=== PATIENT | female | born 1995 | race African-American/Black ===

== ENCOUNTER 2019-02-10 20:01 | Day surgery (SDC) | payer OTHER ==
[2019-02-10 20:27] VITALS: BMI 57.4
[2019-02-10 20:46] VITALS: BP 108/61
--- NOTE | 2019-02-10 20:53 | PDOC.FPROB ---
FMR OB H&P: HPI - History of Present Illness Chief Complaint: contractions Indentification: @ unknown gestational age presenting with a CC of contractions. History of Present Illness: 23YO @ an uncertain gestational age with a reported LMP of 06/17/18 (34 weeks by LMP) who presented to L&D via ambulance with a CC of contractions that began ~ 1 hour ago. Per the patient she was napping with one of her daughters and woke up to go to the bathroom. After she voiding she began to have intermittent lower abdominal pains that she felt were contractions. She tried taking a warm shower to see if the pain would stop but it persisted. She reports the pain as episodic lasting a few minutes with 5 minutes between each painful episode. She reports some associated nausea but denies any vaginal bleeding, d/c, or LOF. She reports regular movement and denies any dysuria or fever/chills as well. The patient reports having incomplete PNC. She states she did not get insurance until she was about 6 months and has been back and forth between [facility] and [place]. She says she has seen an dairy lab technician in [place] only 3 times and cannot remember their name. Primary Care Physician: Unknown physician in [place], [place] FMR OB H&P: Current - Care : 5 Para: [id number] Gestational age: uncertain Due date: uncertain Dating Criteria: uncertain Course/Complications: none - OB Labs Blood type: unknown RH: unknown Antibody Screen: unknown HIV: unknown RPR: unknown HepBsAg: unknown Gonorrhea: unknown Chlamydia: unknown GBS: unknown FMR OB H&P: History - Past Medical History PMH: Asthma, obesity, bipolar disorder - OB History OB History: Pregnancies: 1. Term 2. Term 3. Term LTCS 2/2 arrest of dilation; in NICU for fever/sepsis 4. 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 - Surgical History Sx History: C/S x2 - Social History Social History: No TAD. - Family History Family History: Mother- HTN FMR OB H&P: Medications - Current Home Medications: Medication Instructions Recorded Confirmed Type Ferrous Fumarate [Ferrocite] 324 mg PO DAILY #90 tablet 02/10/19 Rx Vitamin 1 tablet PO DAILY #90 tab 02/10/19 Rx Allergies/Adverse Reactions: Allergies Allergy/AdvReac Type Severity Reaction Status Date / Time No Known Allergies Allergy Unverified 02/10/19 20:25 FMR OB H&P: ROS - Review of Systems General: denies: fever/chills, weight/appetite/sleep changes Eyes: denies: vision changes, scotomas ENT: reports: rhinorrhea. denies: nasal congestion, sore throat Cardiovascular: denies: chest pain, palpitation Respiratory: denies: cough, congestion, shortness of breath Gastrointestinal: reports: abdominal pain, nausea. denies: vomiting, diarrhea, constipation Genitourinary (Female): reports: contractions. denies: dysuria, hematuria, vaginal discharge, vaginal pain, vaginal bleeding Musculoskeletal: reports: swelling. denies: pain Neurologic: denies: syncope, loss of counsciousness, headache Integumentary: denies: rash, lesions Breast: denies: skin changes, pain/tenderness Endocrine: denies: polydipsia, polyuria Hematologic/Lymphatic: denies: prolonged or excessive bleeding Psychological: reports: other (bipolar). denies: depression, anxiety FMR OB H&P: Vital Signs - Maternal Vital signs: Vital Signs - First Documented Pulse Resp BP Pulse Ox 91 18 108/61 100 02/10/19 20:22 02/10/19 20:22 02/10/19 20:22 02/10/19 20:22 - Heart Tones Baseline: 150 Variability: moderate Acceleration: present Deceleration: absent [place] contractions every: no significant contractions noted FMR OB H&P: Physical Exam - Physical Exam General: NAD, awake, alert and oriented HEENT: normocephalic and atraumatic, MMM, conjunctiva clear, grossly normal vision, grossly normal hearing Neck: supple, FROM Heart: RRR, normal S1/S2, pulses present, no edema General: CTAB, no respiratory distress, good air movement, no rales/rhonchi, no wheezing, no retractions Abdomen: soft, gravid, non-tender Musculoskeletal: normal gait and station, pulses present, FROM in all four extremities Neurological: cranial nerves II through XII intact, sensation to pain,touch and proprioception grossly normal, no focal deficit Skin: no rash, good tugor, capillary refill <2 seconds, no jaundice Lymphatic: no unusual bruising or bleeding, no purpura, no petechia Psychiatric: intact recent and remote memory, good judgement and insight, normal mood and affect - Pelvic Exam Vulva: normal hair distribution, appropriate charis stage Deviation from normal: scant amount of bloody show on glove s/p cervical check SVE: fingertip/Th/High FMR OB H&P: A/P - Problem List (1) Status: Acute Qualifiers: Weeks of gestation: 29 weeks Qualified Code(s): Z3A.29 - 29 weeks gestation of (2) Asthma Status: Acute Code(s): J45.909 - UNSPECIFIED ASTHMA, UNCOMPLICATED Disposition: 23YO @ an unknown gestational age with incomplete PNC presenting to L&D with a CC of contractions. Reported contraction, r/o labor: - Unable to obtain a FFN swab as patient last had intercourse this AM. SVE @ 2100 closed/Th/High. No contractions picked up on monitor since arrival. FHT reassuring with baseline in 150s and moderate variability noted. - Will obtain an OB US to better establish dating & will get basic OB bloodwork including a blood type & screen, Hemagram, HIV, RPR, Hep B, & urine drug screen & culture due to inadequate PNC. - Will continue to monitor for contractions. h/o arrest of dilation: - Aware, resulted in first C/S h/o C/S x2: - Aware, patient desires repeat C/S this Obesity: - Aware, will encourage lifestyle changes. Asthma: - Only uses a rescue inhaler PRN. Dispo: Anticipate likely d/c home pending US to establish dates. Discussion: Date/Time: 02/10/192047 This H&P was discussed with Dr. Henry who agrees with the above documentation and plan. Addendum - Attending - Attending Attestation Date/Time: 02/13/19 [id number] I personally evaluated the patient and discussed the management with Dr. Vivas. I agree with the History, Examination, Assessment and Plan documented above with any addition or exceptions noted below. Pt presented with ctx and very limited care with none for many months. Pt has no evidence of labor. vitals reviewed and wnl. drug screen positive for cocaine. PT denies cocaine use. Routine initial OB labs drawn today. anatomy scan measures baby at 29wks with normal fluid. PT being discharged home with f/u scheduled with Dr Vivas next week.
[2019-02-10] MEDS ORDERED: FLU VACC QS2019-20(6MOS UP)/PF 60 MCG/0.5 ML SYRINGE IM ONE (21:00)
[2019-02-10 21:32] LABS: Hemoglobin 10.7 g/dL (12.0-16.0); Mean Corpuscular Hemoglobin 33.5 pg (27.0-31.0); Mean Corpuscular Volume 95.7 fL (78.0-98.0); Mean Platelet Volume 9.2 fL (7.4-10.4); Platelet Count 195 thou/uL (130-400); RBC Distribution Width 11.9 % (11.5-14.5); White Blood Cell (WBC) Count 5.5 thou/uL (4.8-10.8)
--- NOTE | 2019-02-10 22:00 | PDOC.OBTPN ---
R OB Triage PN:Sub - Interval History Chief Complaint: contractions Indentification: @ 29 weeks by sono done today Interval History: Initial OB labs obtained & US showed EGA of 29 weeks FMR OB Triage PN:Obj - Maternal Vital signs: WNLs - Heart Tones Baseline: 150 Variability: moderate [place] contractions every: no contractions noted - Pain Management Pain scale: 0 R OB Triage PN:Exam - Physical Exam General: NAD, awake, alert and oriented HEENT: normocephalic and atraumatic, grossly normal vision, grossly normal hearing Neck: supple, FROM General: no respiratory distress Abdomen: gravid Musculoskeletal: FROM in all four extremities Skin: no rash, good tugor Lymphatic: no unusual bruising or bleeding, no purpura, no petechia Psychiatric: intact recent and remote memory, good judgement and insight, normal mood and affect FMR OB Triage PN:Data - Labs Lab results: Laboratory Results - last 24 hr 02/10/19 02/10/19 02/10/19 21:19 21:19 21:36 WBC 5.5 RBC 3.20 L Hgb 10.7 L Hct 30.6 L MCV 95.7 MCH 33.5 H MCHC 35.0 RDW 11.9 Plt Count 195 MPV 9.2 Blood Type B NEGATIVE B NEGATIVE Antibody Screen NEGATIVE - Imaging Imaging: OB US: sIUP @ ~29 weeks gestation. Vertex. Anterior placenta. MICHAEL 15.3. FHTs of 145. EFW 1251g +/- 185g (24th percentile). R OB Triage PN:A/P - Problem List (1) Current Visit: Yes Status: Acute Qualifiers: Weeks of gestation: 29 weeks Qualified Code(s): Z3A.29 - 29 weeks gestation of (2) Asthma Current Visit: Yes Status: Acute Code(s): J45.909 - UNSPECIFIED ASTHMA, UNCOMPLICATED (3) History of delivery, currently Current Visit: Yes Status: Acute Code(s): O34.219 - MATERNAL CARE FOR UNSP TYPE SCAR FROM PREVIOUS DEL Disposition: 23YO @ 29 weeks by sono done today who presented to L&D with a CC of contractions. Reported contractions, r/o labor: - Still no contractions picked up on monitor since arrival. - FHT reassuring with baseline in 150s and moderate variability noted. - SVE: closed/Th/High @ 2100. - OB US showed an EGA of 29 weeks. - No signs of imminent labor or ROM. sIUP @ 29 weeks w/ inadequate PNC: - Dating confirmed via US done today. - IOB labs obtained which show blood type b negative & Ab negative & RPR -; UA WNLs; HIV, Hep B & UDS pending. - Flu & Tdap given today. - Will refer to [facility] for continued PNC since patient plans to remain in [place] for remainder of . - Continue PNVs. Anemia of : - Hgb 10.7 on initial bloodwork. Will start on PO iron in addition to PNVs. Rh negative: - B negative blood type noted on IOB labs. Will give Rhogam today & will need a second dose within 72 hours of delivery if fetus is Rh +. Cocaine use in : - UDS + for cocaine. Patient denies ever having used it. Possibly the source of her contractions she felt earlier this evening. Counselled on cessation & risks associated with cocaine use in including SGA/low weight, abruption, & pre-term delivery. h/o arrest of dilation: - Aware, resulted in first C/S. h/o C/S x2: - Aware, patient desires repeat C/S this . Obesity: - Aware, will encourage lifestyle changes. Asthma: - Only uses a rescue inhaler PRN. Dispo: Will d/c home with instructions to f/u at [facility] for continued care. Discussion: Date/Time: 02/10/192157 This H&P was discussed with Dr. Henry who agrees with the above documentation and plan.
[2019-02-10 22:05] LABS: Syphilis Antibody Nonreactive (Nonreactive); Syphilis Antibody Index 0.04 S/CO (<1.00 Non-Reactive)
--- NOTE | 2019-02-10 22:34 | ULT ---
EXAM: Obstetrical ultrasound greater than 14 weeks: HISTORY: Incomplete care. Establish gestational age. COMPARISON: None. FINDINGS: Single viable intrauterine fetus is noted in Cephalic presentation. heart rate equals 145 bpm. Placenta is anterior. Cervical length is not adequately seen.. Amniotic fluid is Within normal limits. anatomy: Visualized brain, 4 chamber heart, chest, three-vessel cord, cord insert, stomach, bladder, kid neys, spine, and extremity regions are unremarkable. biometry: BPD: 7.4 cm--29 weeks 3 days Head circumference: 27.3 cm--29 weeks 6 days Abdominal circumference: 23.8 cm--28 weeks 1 day Femur length:5.4 cm--28 weeks 5 days IMPRESSION: Gestational age by ultrasound: 29 weeks 0 days LENNY by ultrasound: 04/28/2019 Estimated weight: 1251 g
[2019-02-10 22:43] LABS: Bacteria/HPF None Seen HPF (None Seen); Bilirubin Negative (Negative); Blood, Urine Negative (Negative); Clarity Clear (Clear); Glucose, Urine (Dipstick) Normal (Negative); Leukocyte 25 Leu/uL (Negative); Nitrite Negative (Negative); Protein, Urine (Dipstick) 20 mg/dL (Neg-Trace); RBC/HPF 0-3 HPF (0-3); Squamous Epithelial 0-3 HPF (0-3); WBC/HPF 0-3 HPF (0-3)
[2019-02-10] MEDS ORDERED: Boostrix 0.5 ML VIAL IM ONE (22:49)
[2019-02-10 22:52] LABS: Amphetamine Not Detected (NotDetected); Barbiturates Screen Not Detected (NotDetected); Benzodiazepine Screen Not Detected (NotDetected); Cocaine Metabolite Screen Detected (NotDetected); Medtox Control Line Valid? VALID (VALID); Medtox Reader # READER 4; Methadone Not Detected (NotDetected); Methamphetamine Not Detected (NotDetected); Opiate Screen Not Detected (NotDetected); Oxycodone Screen Not Detected (NotDetected); Phencyclidine (PCP) Not Detected (NotDetected); THC/Cannabinoid Screen Not Detected (NotDetected); Tricyclic Screen Not Detected (NotDetected)
[2019-02-10] MEDS ORDERED: Adacel (T-DAP) 0.5 ML SYRINGE IM ONE (23:00)
[2019-02-10 23:58] LABS: HIV (1/2) Antibody/Antigen Non-Reactive (NonReactive); HIV 1/2 INDEX 0.13 S/CO (<1.00); Hep B Surf Ag Non-Reactive S/CO (NonReactive)
== END 2019-02-10 23:32 | disposition home or self-care (01) ==
LOC: L&D/OP 20:01
PROVIDERS: ATTEND Obstetrics & Gynecology
DX: O47.03 False labor before 37 completed weeks of gestation, third trimester (principal); O99.213 Obesity complicating pregnancy, third trimester; E66.9 Obesity, unspecified; O99.513 Diseases of the respiratory system complicating pregnancy, third trimester; J45.909 Unspecified asthma, uncomplicated; O34.211 Maternal care for low transverse scar from previous cesarean delivery; Z3A.34 34 weeks gestation of pregnancy; Z79.899 Other long term (current) drug therapy
CPT/HCPCS: 36415; 76815; 80306; 81001; 85027; 86762; 86780; 86850; 86900; 86901; 87081; 87086; 87340; 87389; 90384; 90715; 96372

== ENCOUNTER 2019-04-27 19:36 | Inpatient (IN) | payer OTHER ==
[2019-04-27] MEDS ORDERED: hydrALAZINE 20 MG/ML VIAL SLOW IVP PRN ×2 (19:38→21:01)
[2019-04-27 20:11] VITALS: BMI 58.1
[2019-04-27 20:41] LABS: Bacteria/HPF None Seen HPF (None Seen); Bilirubin Negative (Negative); Blood, Urine Trace (Negative); Clarity Clear (Clear); Glucose, Urine (Dipstick) Normal (Negative); Leukocyte Negative Leu/uL (Negative); Nitrite Negative (Negative); Protein, Urine (Dipstick) 30 mg/dL (Neg-Trace); WBC/HPF 0-3 HPF (0-3)
[2019-04-27 20:43] LABS: Urine Culture Reflex No No
[2019-04-27 20:59] LABS: Amphetamine Not Detected (NotDetected); Barbiturates Screen Not Detected (NotDetected); Benzodiazepine Screen Not Detected (NotDetected); Cocaine Metabolite Screen Detected (NotDetected); Medtox Reader # READER 4; Methadone Not Detected (NotDetected); Methamphetamine Not Detected (NotDetected); Opiate Screen Not Detected (NotDetected); Oxycodone Screen Not Detected (NotDetected); Phencyclidine (PCP) Not Detected (NotDetected); THC/Cannabinoid Screen Detected (NotDetected); Tricyclic Screen Not Detected (NotDetected)
[2019-04-27 21:00] LABS: Medtox Control Line Valid? VALID (VALID)
[2019-04-27] MEDS ORDERED: Promethazine HCl 25 MG/ML VIAL IM PRN (21:01)
[2019-04-27] MEDS ORDERED: Acetaminophen 500 MG TAB PO PRN (21:01)
[2019-04-27] MEDS ORDERED: Ondansetron PF 4 MG/2 ML Vial IVP PRN (21:01)
[2019-04-27 21:08] LABS: Creatinine, Urine 251.2 mg/dL (47-110)
--- NOTE | 2019-04-27 21:10 | PDOC.LDHP ---
Labor and Delivery H&P Chief complaint: other (pelvic pressure) HPI: 23 y/o at 39w6d by 27 week ultrasound presents with pelvic pressure and burning with urination. Denies sharp pain, VB, LOF, or decreased FM. Was seen once in triage but no care otherwise. Was previously + for cocaine. ROS neg for HEENT, cv, pulm, gi, gu, neuro, psych, skin, musculoskeletal or constitutional symptoms other than mentioned above. OB History Details: Term Term Term LTCS for arrest of dilation; to NICU for sepsis Term rLTCS Current complications: other (no care) Past Medical History: Asthma Obesity Bipolar Current medications: pre- vitamins, iron Previous surgical history: low tranverse CS (x2) Allergies/Adverse Reactions: Allergies Allergy/AdvReac Type Severity Reaction Status Date / Time No Known Allergies Allergy Unverified 02/10/19 20:25 Social history: drug use - Physical Exam Vital signs reviewed and normal: yes (mild range BPs) General: NAD, resting Lungs: nonlabored breathing Abdomen: gravid Extremeties: no edema FHT: category 1 (150s, mod variability, + accels, no decels) [place] contractions every: occasional - OB Labs Blood type: B RH: negative - Assessment Term patient with poor compliance, + UDS for cocaine/marijuana, EDC tomorrow with prior x 2. BPs elevated, labs pending. - Plan Plan: admit to L&D, to OR for section (tomorrow), informed consent obtained, anesthesia consult for pain management
[2019-04-27 21:13] LABS: #Eosinphils 0.2 thou/uL (0.0-0.7); #Lymphocytes 1.9 thou/uL (1.20-3.40); #Monocytes 0.6 thou/uL (0.11-0.59); #Neutrophils 4.6 thou/uL (1.40-6.50); %Basophils 0.3 % (0.0-1.0); %Eosinophils 2.2 % (0.0-10.0); %Lymphocytes 26.4 % (21.0-51.0); %Monocytes 8.2 % (0.0-10.0); Hemoglobin 10.7 g/dL (12.0-16.0); Mean Corpuscular HGB CONC 36.3 g/dL (32.0-36.0); Mean Corpuscular Hemoglobin 33.5 pg (27.0-31.0); Mean Corpuscular Volume 92.3 fL (78.0-98.0); Mean Platelet Volume 9.3 fL (7.4-10.4); Platelet Count 223 thou/uL (130-400); RBC Distribution Width 12.4 % (11.5-14.5); White Blood Cell (WBC) Count 7.3 thou/uL (4.8-10.8)
[2019-04-27] MEDS ORDERED: Lactated Ringer's 1,000 ML IV SCH (21:15)
[2019-04-27 21:32] LABS: ALT (SGPT) 8 U/L (8-55); AST (SGOT) 7 U/L (5-34); Albumin 3.2 g/dL (3.5-5.0); Alkaline Phosphatase 238 U/L (40-110); Anion Gap 13 mmol/L (10-20); BUN (Urea Nitrogen) 10 mg/dL (7.0-18.7); Bilirubin, Total 0.4 mg/dL (0.2-1.2); Calc. Creatinine Clearance 277 mL/min (70-130); Calcium 9.1 mg/dL (7.8-10.44); Carbon Dioxide 20 mmol/L (22-29); Chloride 105 mmol/L (98-107); Estimated GFR-MDRD Greater than 90; Glucose 88 mg/dL (70-105); Potassium 3.7 mmol/L (3.5-5.1); Protein, Total 7.2 g/dL (6.0-8.3); Sodium 134 mmol/L (136-145)
--- NOTE | 2019-04-27 22:35 | PDOC.BPN ---
- Brief Progress Note Pr:Cr ratio 0.07, no e/o preeclampsia at this time. Elevated BPs possibly due to +cocaine. Will continue to monitor overnight.
--- NOTE | 2019-04-27 23:31 | ULT ---
OB ULTRASOUND 04/27/19 HISTORY: Evaluate for growth. COMPARISON: 02/10/19. FINDINGS: Again noted is evidence of a single intrauterine gestation in cephalic presentation. Cardiac Doppler demonstrates heart tones with a heart rate of 157 beats per minute. The placenta is locat ed anteriorly and to the maternal right. The head obscures the lower uterine segment. The amnio tic fluid index measures 13.4 cm which is within normal limits. The cervix is obscured due to shadowi ng from the head. MEASUREMENTS: Biparietal diameter 9.09 cm 36 weeks, 6 days Head circumference 34.06 cm 39 weeks, 1 day Abdominal circumference 33.75 cm 37 weeks, 5 days Femur length 7.33 cm 37 weeks, 4 days The estimated gestational age by ultrasound is 37 weeks and 6 days with an LENNY on 05/12/2019. Gestatio nal age by the last menstrual period is 39 weeks and 6 days. The estimated weight by ultrasound is 3283 grams (7 lb. 4 oz.). There has been interval growth compared to the prior exam. This examination was not performed for evaluation of the anatomical structures. However, no def initive anomalies are seen based on the provided sonographic images. IMPRESSION: 1. Single intrauterine gestation in cephalic presentation with heart tones documented. Ges tational age by ultrasound is 37 weeks, 6 days with an LENNY on 05/12/2019. This does represent a discre pancy in the gestational age by the last menstrual period of 39 weeks, 6 days. 2. Estimated weight is 3283 grams (7 lb. 4 oz.). This represents the 25th percentile for f etal weight. 3. Amniotic fluid index measures 13.4 cm. POS: [facility]
[2019-04-28 00:06] LABS: HBSAg Index 0.13 S/CO (0-0.99); Hep B Surf Ag Non-Reactive S/CO (NonReactive); Syphilis Antibody Nonreactive (Nonreactive); Syphilis Antibody Index 0.04 S/CO (<1.00 Non-Reactive)
[2019-04-28 00:25] LABS: HIV (1/2) Antibody/Antigen Non-Reactive (NonReactive)
[2019-04-28 00:28] LABS: HIV 1/2 INDEX 0.06 S/CO (<1.00)
[2019-04-28] MEDS ORDERED: Ondansetron PF 4 MG/2 ML Vial ONE (10:02)
[2019-04-28] MEDS ORDERED: Fentanyl 100 MCG/2 ML VIAL ONE (10:02)
[2019-04-28] MEDS ORDERED: MORPHINE 5 MG/10 ML PF VIAL ONE (10:02)
[2019-04-28] MEDS ORDERED: Oxytocin 10 UNITS/ML VIAL ONE (10:02)
[2019-04-28] MEDS ORDERED: Metoclopramide HCl 10 MG/2 ML VIAL ONE (10:02)
[2019-04-28] MEDS ORDERED: Azithromycin 500 MG in Sodium Chloride 0.9% 250 ML 250 ML IVPB SCH (11:15)
[2019-04-28] MEDS ORDERED: CEFAZOLIN 2 GM in Premix Bag 1 BAG IVPB SCH (11:15)
[2019-04-28] MEDS ORDERED: Ondansetron HCl/PF 4 MG/2 ML Vial IVP PRN (12:44)
[2019-04-28] MEDS ORDERED: Naloxone HCl 0.4 mg/ml Vial IVP PRN ×2 (12:44)
[2019-04-28] MEDS ORDERED: Naloxone HCl 0.4 mg/ml Vial IV PRN (12:44)
[2019-04-28] MEDS ORDERED: L&D-Morphine 4 MG/ML VIAL SLOW IVP PRN (12:44)
[2019-04-28] MEDS ORDERED: Ondansetron PF 4 MG/2 ML Vial IVP PRN ×2 (12:44→15:26)
[2019-04-28] MEDS ORDERED: Promethazine HCl 25 MG/ML VIAL IM PRN (12:44)
[2019-04-28] MEDS ORDERED: Meperidine HCl/PF 25 MG/ML VIAL SLOW IVP PRN (12:44)
[2019-04-28] MEDS ORDERED: Promethazine HCl 25 MG SUPP PR PRN (12:44)
[2019-04-28] MEDS ORDERED: HYDROmorphone 2 MG/ML VIAL SLOW IVP PRN (12:44)
[2019-04-28] MEDS ORDERED: Ketorolac Tromethamine 30 MG/ML VIAL IVP SCH (12:45)
[2019-04-28] MEDS ORDERED: Communication Order-Pharmacy FS SCH (12:45)
[2019-04-28 12:47] LABS: Analyzer IN Cardio OR
[2019-04-28 12:48] LABS: Actual Bicarbonate (HCO3v) 20 mEq/L (22-28); Base Excess -11.4 mEq/L (-2.0 to +3.0); pH (Cord, venous) 7.07 (7.32-7.43)
[2019-04-28 12:49] LABS: Actual Bicarbonate (HCO3a) 22.4 mEq/L (22-28); Analyzer IN Cardio OR; Base Excess (BEa) -9.8 mEq/L (-2.0 to +3.0)
[2019-04-28] MEDS ORDERED: diphenhydrAMINE 50 MG/ML VIAL ONE (13:34)
[2019-04-28] MEDS: diphenhydrAMINE 50 MG/ML VIAL IVP PRN ×2 (13:35→17:54)
[2019-04-28] MEDS ORDERED: NS / Oxytocin 40 units/1000ml 1,000 ML IV SCH (14:00)
--- NOTE | 2019-04-28 15:20 | OP ---
DATE OF PROCEDURE: 04/28/2019 PREOPERATIVE DIAGNOSES: 1. A 40-week intrauterine . 2. Labile blood pressures. 3. Two previous sections. 4. Maternal obesity. POSTOPERATIVE DIAGNOSES: 1. A 40-week intrauterine . 2. Labile blood pressures. 3. Two previous sections. 4. Maternal obesity. PROCEDURE PERFORMED: Repeat low-segment transverse section via Pfannenstiel incision. SURGEON: Jason Dc MD SENIOR VISUAL DESIGNER SURGEONS: 1. Jessica Peters MD. 2. Renee Nichols MD. FINDINGS: 1. Viable female , weight 7 pounds 3 ounces, found in the cephalic presentation with Apgars of 1 and 9. 2. Meconium-stained fluid. 3. Normal uterus, tubes, and ovaries bilaterally. 4. Arterial cord pH of 7.05. ANESTHESIA: Spinal. ESTIMATED BLOOD LOSS: 600 mL. QBL pending. COMPLICATIONS: None. PROPHYLAXIS: Ancef 2 g IV prior to incision. TECHNIQUE IN DETAIL: After good spinal anesthesia was achieved, the patient was prepped and draped in the usual sterile fashion in the supine position with leftward tilt. Tape was used to elevate the maternal pannus. A transverse incision was made through a pre-existing surgical scar and the abdomen was entered in layers. Once the peritoneal cavity had been entered, it could be seen that there was a white band of adhesions on the left lateral side of the uterus. This was avoided and a transverse incision was made across the lower uterine segment. Upon entry into the uterine cavity, meconium-stained fluid could be seen. The fetus was delivered from the cephalic presentation. The nasopharynx was bulb suctioned and then the remainder of the baby was then delivered. Cord was clamped and cut, and the baby was taken to the warmer, where the nursery personnel were in attendance. The cord blood and cord gas were then obtained. The placenta was manually removed. The inside of the uterus was curetted with a dry lap to remove all remaining placental fragments. The uterus was exteriorized and the closure of the uterine incision was begun using a running locking suture of Monocryl. Good hemostasis was noted with single- layer closure. The uterus was then replaced in the abdominal cavity and the pelvic gutters were cleared of all clots and debris. The uterine incision was again reviewed and was noted to be hemostatic. Attention was turned to the anterior abdominal wall. The fascia was closed using an alternating running locking suture of PDS, brought laterally to the midline. The subcutaneous tissue was thoroughly irrigated and made dry using Bovie coagulation technique. Plain gut was then used to approximate the subcutaneous tissue. The skin was closed with metal rob. Sponge, lap, and needle counts were correct. A wound VAC was placed across the wound prophylactically. The patient tolerated the procedure well and was taken to the recovery room in good condition. Job ID: [id number] [facility]
[2019-04-28] MEDS ORDERED: Bisacodyl 10 MG SUPP PR PRN (15:26)
[2019-04-28] MEDS ORDERED: Lanolin Ointment 7 GM TUBE TOP PRN (15:26)
[2019-04-28] MEDS ORDERED: hydrALAZINE 20 MG/ML VIAL SLOW IVP PRN (15:26)
[2019-04-28] MEDS: Ferrous Sulfate 325 MG TAB PO SCH (21:34)
[2019-04-28] MEDS: Docusate Calcium (SURFAK) 240 MG CAP PO SCH (21:34)
[2019-04-28] MEDS: Ketorolac Tromethamine 30 MG/ML VIAL IVP PRN (22:32)
--- NOTE | 2019-04-29 01:22 | PDOC.PP ---
Post Progress Note Post Day #: POD1 Subjective: Resting, no complaints. PO intake tolerated: yes Flatus: no Ambulation: yes Vital Signs (12 hours) Temp Pulse Resp BP Pulse Ox 04/29/19 00:37 97.5 F L 80 20 106/56 L 97 04/28/19 20:05 98.3 F 83 20 129/59 L 98 04/28/19 17:50 98.3 F 76 20 123/68 04/28/19 16:50 87 20 135/76 04/28/19 15:50 97.5 F L 68 20 138/67 99 Weight Weight 148.778 kg - Physical Examination General: NAD Respiratory: non-labored breathing Abdominal: no distention, appropriately TTP Skin: CS incision dry & intact Psychiatric: normal affect Result Diagrams: 04/27/19 21:04 04/27/19 21:04 Additional Labs: Post Labs Blood Type B NEGATIVE 04/27/19 23:18 Hep Bs Antigen Non-Reactive S/CO (NonReactive) 04/27/19 23:18 - Assessment/Plan Doing well. Routine postop care.
[2019-04-29] MEDS: Ketorolac Tromethamine 30 MG/ML VIAL IVP PRN (04:29)
[2019-04-29 07:43] LABS: Hemoglobin 10.1 g/dL (12.0-16.0); Mean Corpuscular HGB CONC 35.3 g/dL (32.0-36.0); Mean Corpuscular Hemoglobin 32.8 pg (27.0-31.0); Mean Corpuscular Volume 92.9 fL (78.0-98.0); Mean Platelet Volume 9.4 fL (7.4-10.4); Platelet Count 165 thou/uL (130-400); RBC Distribution Width 12.1 % (11.5-14.5); Red Blood Cell (RBC) Count 3.08 mill/uL (4.20-5.40); White Blood Cell (WBC) Count 6.2 thou/uL (4.8-10.8)
[2019-04-29] MEDS: Ferrous Sulfate 325 MG TAB PO SCH ×2 (08:03→21:17)
[2019-04-29] MEDS ORDERED: Adacel (T-DAP) 0.5 ML SYRINGE IM ONE (09:00)
[2019-04-29] MEDS ORDERED: FLU VACC QS2019-20(6MOS UP)/PF 60 MCG/0.5 ML SYRINGE IM ONE (09:00)
[2019-04-29] MEDS: Prenatal Vitamin 1 TAB PO SCH (09:33)
[2019-04-29] MEDS: Docusate Calcium (SURFAK) 240 MG CAP PO SCH ×3 (09:33→21:20)
[2019-04-29] MEDS: Polyethylene Glycol 3350 17 GM Packet PO SCH (09:34)
[2019-04-29] MEDS ORDERED: HYDROcodone/Acetaminophen 5/325 mg Tablet PO PRN ×2 (09:47)
[2019-04-29] MEDS: Ibuprofen 800 MG TAB PO SCH ×2 (13:29→21:18)
--- NOTE | 2019-04-30 03:47 | PDOC.PP ---
Post Progress Note Post Day #: 2 Subjective: Doing well. No complaints. PO intake tolerated: yes Flatus: yes Ambulation: yes Vital Signs (12 hours) Temp Pulse Resp BP Pulse Ox 04/30/19 00:00 97.9 F 101 H 20 121/76 04/29/19 20:16 98.4 F 102 H 20 124/60 99 Weight Weight 148.778 kg - Physical Examination General: NAD Cardiovascular: no m/r/g, RRR Respiratory: clear to auscultation bilaterally, non-labored breathing Abdominal: appropriately TTP Skin: CS incision dry & intact Psychiatric: A&Ox3 Result Diagrams: 04/29/19 07:07 04/27/19 21:04 Additional Labs: Post Labs Blood Type B NEGATIVE 04/27/19 23:18 Hep Bs Antigen Non-Reactive S/CO (NonReactive) 04/27/19 23:18 (1) S/P repeat low transverse Code(s): Z98.891 - HISTORY OF UTERINE SCAR FROM PREVIOUS SURGERY Status: Acute (2) Cocaine abuse affecting Code(s): O99.320 - DRUG USE COMPLICATING , UNSPECIFIED TRIMESTER; F14.10 - COCAINE ABUSE, UNCOMPLICATED Status: Acute - Assessment/Plan Continue routine care. Pt needs to meet with CM/CPS prior to discharge d/t cocaine + UDS. They are coming to see her Wednesday. BPs have been wnl since delivery.
[2019-04-30] MEDS: Ibuprofen 800 MG TAB PO SCH ×3 (05:43→21:07)
[2019-04-30] MEDS: Docusate Calcium (SURFAK) 240 MG CAP PO SCH ×2 (09:26→21:07)
[2019-04-30] MEDS: Ferrous Sulfate 325 MG TAB PO SCH ×2 (09:26→21:07)
[2019-04-30] MEDS: Polyethylene Glycol 3350 17 GM Packet PO SCH (09:27)
[2019-04-30] MEDS: Prenatal Vitamin 1 TAB PO SCH (09:27)
--- NOTE | 2019-05-01 06:13 | PDOC.PP ---
Post Progress Note Post Day #: 3 Subjective: Feeling well PO intake tolerated: yes Flatus: yes Ambulation: yes Vital Signs (12 hours) Pulse Ox 04/30/19 20:00 100 Weight Weight 328 lb Vitals reviewed for last 24 hrs:afebrile, pulse ranges from 80-100 at max - Physical Examination General: NAD Abdominal: + bowel sounds, lochia, no distention, appropriately TTP Extremities: negative homans (B) Skin: CS incision dry & intact (rob in place, dressing removed as the tape surounding it was already half off), no rash Neurological: no gross focal deficits Psychiatric: A&Ox3, normal affect Result Diagrams: 04/29/19 07:07 04/27/19 21:04 Additional Labs: Post Labs Blood Type B NEGATIVE 04/27/19 23:18 Hep Bs Antigen Non-Reactive S/CO (NonReactive) 04/27/19 23:18 (1) delivery due to maternal disorder, delivered, curr hospitaliz Code(s): O99.89 - OTH DISEASES AND CONDITIONS COMPL PREG/CHLDBRTH Status: Acute (2) Morbid obesity with BMI of 50.0-59.9, adult Code(s): E66.01 - MORBID (SEVERE) OBESITY DUE TO EXCESS CALORIES; Z68.43 - BODY MASS INDEX (BMI) 50.0-59.9, ADULT Status: Acute (3) S/P repeat low transverse Code(s): Z98.891 - HISTORY OF UTERINE SCAR FROM PREVIOUS SURGERY Status: Acute - Assessment/Plan Plan: 1. POD3: plan for home today after case management evaluation completed. 2. UTOX pos for cocaine: case management today 3. Rob in place: out with [facility] on Wednesday this week 4. Morbid obesity: recommend ambulation as much as possible.
[2019-05-01] MEDS: Ibuprofen 800 MG TAB PO SCH ×2 (06:26→14:12)
[2019-05-01 08:30] VITALS: BP 118/64; TEMP 97.9
[2019-05-01] MEDS: Polyethylene Glycol 3350 17 GM Packet PO SCH (09:33)
[2019-05-01] MEDS: Ferrous Sulfate 325 MG TAB PO SCH (09:33)
[2019-05-01] MEDS: Docusate Calcium (SURFAK) 240 MG CAP PO SCH (09:34)
[2019-05-01] MEDS: Prenatal Vitamin 1 TAB PO SCH (09:34)
== END 2019-05-01 16:30 | disposition home or self-care (01) | DRG 787 ==
LOC: L&D/OP 19:36 → L&D 04-28 00:14 → 3SW 04-28 15:50
PROVIDERS: ADMIT Obstetrics & Gynecology; ATTEND Obstetrics & Gynecology
PROC: 10D00Z1 Extraction of Products of Conception, Low, Open Approach (ICD-10-PCS; principal; 2019-04-28)
DX: O34.211 Maternal care for low transverse scar from previous cesarean delivery (principal); O99.324 Drug use complicating childbirth; Z3A.40 40 weeks gestation of pregnancy; Z37.0 Single live birth; O99.214 Obesity complicating childbirth; E66.8 Other obesity; O99.52 Diseases of the respiratory system complicating childbirth; J45.909 Unspecified asthma, uncomplicated; O99.344 Other mental disorders complicating childbirth; F31.9 Bipolar disorder, unspecified; F14.10 Cocaine abuse, uncomplicated
CPT/HCPCS: 36415; 51702; 76815; 80053; 80306; 81001; 82570; 82805; 84156; 85025; 85027; 85461; 86780; 86850; 86900; 86901; 87340; 87389; 88307; 90384; 96372; 99285; J0456; J0690; J1200; J1885; J2274; J2405; J2590; J2765; J3010; J7050

== ENCOUNTER 2019-05-05 12:15 | Emergency (ER) | payer OTHER | END 2019-05-05 13:34 | disposition home or self-care (01) | LOC: ERS 12:15 | DX: Z48.02 Encounter for removal of sutures (principal); J45.909 Unspecified asthma, uncomplicated; F31.9 Bipolar disorder, unspecified; F17.210 Nicotine dependence, cigarettes, uncomplicated ==